=== PATIENT | male | born 1940 | race Caucasian/White ===

== ENCOUNTER 2019-12-07 05:37 | Inpatient (IN) ==
[2019-12-07] MEDS ORDERED: Naloxone 0.4 MG/ML INJ IVP PRN (08:00)
[2019-12-07] MEDS ORDERED: *HR* Dextrose 50 % in Water (Vial) 50 ML VIAL IVP PRN (08:41)
[2019-12-07] MEDS ORDERED: Dextrose Gel 15 GM/37.5 ML TUBE PO PRN ×2 (08:41)
[2019-12-07] MEDS ORDERED: D5% in Water 1,000 ML IVC PRN (08:41)
[2019-12-07 08:49] LABS: Basophils % 0.2 %; Eosinophils # 0.1 K/mcL (0.0-0.6); Eosinophils % 1.9 %; Hematocrit 34.2 % (37.5-50.1); Hemoglobin 11.3 g/dL (12.9-16.9); Immature Granulocytes % 0.4 % (0-4); Lymphocytes % 21.1 %; Mean Corpuscular Hemoglobin 28.1 pg (28.0-33.3); Mean Corpuscular Volume 85.1 fL (83.0-100.0); Mean Platelet Volume 10.2 fL (9.4-12.4); Monocytes # 0.4 K/mcL (0.0-1.3); Monocytes % 8.6 %; Neutrophils # 3.2 K/mcL (1.6-8.9); Platelet Count 168 K/mcL (140-400); Red Blood Count 4.02 M/mcL (4.19-5.50); Segmented Neutrophils % 67.8 %; White Blood Count 4.7 K/mcL (4.3-11.1)
[2019-12-07 08:58] LABS: Albumin 3.6 g/dL (3.5-5.7); Albumin/Globulin Ratio 1.1 (1.1-2.2); Bilirubin,Total 0.2 mg/dL (0.3-1.0); Globulin 3.2 g/dL (2.4-3.5); Magnesium 1.4 mg/dL (1.6-2.6); Phosphorous 3.9 mg/dL (2.7-4.5); Potassium 5.6 mEq/L (3.5-5.1); Total Protein 6.8 g/dL (6.4-8.9)
[2019-12-07 09:04] LABS: INR 1.2; Prothrombin Time 13.5 Seconds (9.4-12.1)
[2019-12-07] MEDS ORDERED: SODIUM ZIRCONIUM CYCLOSILICATE 5 GM POWD.PACK PO SCH (11:45)
[2019-12-07] MEDS: Insulin LISPRO 300 UNITS/3 ML VIAL SQ SCH ×4 (12:06→21:46)
[2019-12-07 13:19] LABS: Bacteria,Urine Few per hpf (None-Few); Bilirubin,Urine Negative (Negative); Blood,Urine Large (Negative); Clarity,Urine Turbid (Clear); Color,Urine Light-Yellow (Yellow); Glucose,Urine (UA) Normal (Normal); Ketones,Urine Negative (Negative); Leukocyte Esterase,Urine Large (Negative); Nitrite,Urine Negative (Negative); Protein,Urine Trace mg/dL (Neg-Trace); RBC,Urine 30-50 per hpf (0-3); Renal Epithelial Cells,Urine Few per hpf (None-Few); Specific Gravity,Urine 1.009 (1.010-1.025); Urobilinogen,Urine Normal (Normal); WBC,Urine TNTC per hpf (0-3)
[2019-12-07] MEDS: Sodium Bicarbonate 75 MEQ in 0.45 % Sodium Chloride 1,000 ML IVC SCH (14:16)
[2019-12-07] MEDS: SODIUM ZIRCONIUM CYCLOSILICATE 5 GM POWD.PACK PO SCH (15:34)
[2019-12-07 16:31] LABS: Calcium 8.2 mg/dL (8.6-10.3); Potassium 5.7 mEq/L (3.5-5.1)
[2019-12-07] MEDS ORDERED: Calcium Gluconate 1gm/50mL 1 GM/50 ML BAG IVPB ONE (16:37)
[2019-12-07] MEDS: *HR* Rivaroxaban 15 MG TABLET PO SCH (18:26)
[2019-12-07] MEDS: Acetaminophen 325 MG TABLET PO PRN (18:55)
[2019-12-08] MEDS: Sodium Bicarbonate 75 MEQ in 0.45 % Sodium Chloride 1,000 ML IVC SCH ×3 (00:07→16:08)
[2019-12-08 01:24] LABS: Protein/Creatinine Ratio,Urine 1.13 mg/mg (0.00-0.20); Sodium, Urine 74.9 mEq/L
[2019-12-08 07:38] LABS: Basophils % 0.5 %; Eosinophils # 0.1 K/mcL (0.0-0.6); Hematocrit 35.4 % (37.5-50.1); Immature Granulocytes % 0.3 % (0-4); Lymphocytes # 1.1 K/mcL (0.6-4.6); Lymphocytes % 18.4 %; Mean Corpuscular HGB Conc 33.9 g/dL (31.6-35.5); Mean Corpuscular Volume 82.5 fL (83.0-100.0); Mean Platelet Volume 10.3 fL (9.4-12.4); Monocytes # 0.5 K/mcL (0.0-1.3); Monocytes % 7.7 %; Neutrophils # 4.2 K/mcL (1.6-8.9); Platelet Count 196 K/mcL (140-400); Red Blood Count 4.29 M/mcL (4.19-5.50); Red Cell Distribution Width 15.9 % (11.5-14.5); Segmented Neutrophils % 71.1 %; White Blood Count 5.9 K/mcL (4.3-11.1)
[2019-12-08 07:49] LABS: BUN/Creatinine Ratio 49 (6-26); Blood Urea Nitrogen 52 mg/dL (8-23); Calcium 9.2 mg/dL (8.6-10.3); Carbon Dioxide 17 mEq/L (23-29); Chloride 114 mEq/L (98-107); Glucose 191 mg/dL (70-105); Magnesium 1.6 mg/dL (1.6-2.6); Osmolality,Calculated 307 (280-300); Phosphorous 1.8 mg/dL (2.7-4.5); Potassium 4.8 mEq/L (3.5-5.1); Sodium 139 mEq/L (136-145); eGFR For African Americans > 60 (> 60); eGFR For Non-African Americans > 60 (> 60)
[2019-12-08] MEDS: Insulin LISPRO 300 UNITS/3 ML VIAL SQ SCH ×4 (09:21→20:45)
[2019-12-08] MEDS ORDERED: CloNIDine Patch 0.1 MG PATCH (WEEKLY) TD SCH (10:00)
[2019-12-08] MEDS: SODIUM ZIRCONIUM CYCLOSILICATE 5 GM POWD.PACK PO SCH (10:31)
[2019-12-08] MEDS: carvediloL 25 MG TABLET PO SCH ×2 (10:32→20:52)
[2019-12-08] MEDS: Finasteride 5 MG TABLET PO SCH (10:32)
[2019-12-08] MEDS: hydrOXYzine pamoate 25 MG CAPSULE PO SCH ×2 (16:08→20:52)
[2019-12-08] MEDS: *HR* Rivaroxaban 15 MG TABLET PO SCH (16:08)
[2019-12-08] MEDS: Insulin DETEMIR 100 UNIT/ML X5UNITS SQ SCH (16:08)
[2019-12-08] MEDS: lisinopriL 20 MG TABLET PO SCH (17:33)
[2019-12-08 23:50] LABS: Protein/Creatinine Ratio,Urine 3.12 mg/mg (0.00-0.20)
[2019-12-08 23:54] LABS: Bacteria,Urine Few per hpf (None-Few); Bilirubin,Urine Negative (Negative); Blood,Urine Moderate (Negative); Clarity,Urine Turbid (Clear); Color,Urine Light-Yellow (Yellow); Glucose,Urine (UA) 500 mg/dL (Normal); Ketones,Urine Negative (Negative); Leukocyte Esterase,Urine Large (Negative); Nitrite,Urine Negative (Negative); Protein,Urine 200 mg/dL (Neg-Trace); RBC,Urine 15-30 per hpf (0-3); Specific Gravity,Urine 1.017 (1.010-1.025); Squamous Epithelial Cell,Urine Few per hpf (None-Few); Urobilinogen,Urine Normal (Normal); WBC,Urine TNTC per hpf (0-3)
[2019-12-09] MEDS: Sodium Bicarbonate 75 MEQ in 0.45 % Sodium Chloride 1,000 ML IVC SCH (03:51)
[2019-12-09 07:51] LABS: BUN/Creatinine Ratio 29 (6-26); Blood Urea Nitrogen 24 mg/dL (8-23); Calcium 8.8 mg/dL (8.6-10.3); Carbon Dioxide 23 mEq/L (23-29); Chloride 106 mEq/L (98-107); Glucose 224 mg/dL (70-105); Magnesium 1.2 mg/dL (1.6-2.6); Osmolality,Calculated 299 (280-300); Phosphorous 1.9 mg/dL (2.7-4.5); Sodium 139 mEq/L (136-145); eGFR For African Americans > 60 (> 60); eGFR For Non-African Americans > 60 (> 60)
[2019-12-09] MEDS: SODIUM ZIRCONIUM CYCLOSILICATE 5 GM POWD.PACK PO SCH (09:31)
[2019-12-09] MEDS: Insulin LISPRO 300 UNITS/3 ML VIAL SQ SCH ×4 (09:35→20:44)
[2019-12-09] MEDS: carvediloL 25 MG TABLET PO SCH ×2 (09:36→20:43)
[2019-12-09] MEDS: hydrOXYzine pamoate 25 MG CAPSULE PO SCH ×3 (09:36→20:43)
[2019-12-09] MEDS: Insulin DETEMIR 100 UNIT/ML X5UNITS SQ SCH ×2 (09:37→20:44)
[2019-12-09] MEDS: Finasteride 5 MG TABLET PO SCH (09:37)
[2019-12-09] MEDS: lisinopriL 20 MG TABLET PO SCH (09:37)
[2019-12-09 11:08] LABS: Bacteria,Urine Few per hpf (None-Few); Bilirubin,Urine Negative (Negative); Blood,Urine Moderate (Negative); Clarity,Urine Turbid (Clear); Color,Urine Yellow (Yellow); Glucose,Urine (UA) >=1000 mg/dL (Normal); Ketones,Urine 20 mg/dL (Negative); Leukocyte Esterase,Urine Large (Negative); Mucus,Urine Few per lpf (None-Few); Nitrite,Urine Negative (Negative); PH,Urine 6.5 pH Units (5.0-8.0); Protein,Urine 200 mg/dL (Neg-Trace); RBC,Urine 50-100 per hpf (0-3); Specific Gravity,Urine 1.017 (1.010-1.025); Squamous Epithelial Cell,Urine Few per hpf (None-Few); Urobilinogen,Urine Normal (Normal); WBC,Urine TNTC per hpf (0-3)
[2019-12-09] MEDS: Ertapenem 1,000 MG in 0.9 % Sodium Chloride Mini Bag 100 ML IVPB SCH (15:43)
[2019-12-09] MEDS: *HR* Rivaroxaban 15 MG TABLET PO SCH (15:43)
[2019-12-10] MEDS: Insulin LISPRO 300 UNITS/3 ML VIAL SQ SCH ×4 (08:04→20:24)
[2019-12-10] MEDS: Finasteride 5 MG TABLET PO SCH (08:05)
[2019-12-10] MEDS: carvediloL 25 MG TABLET PO SCH ×2 (08:05→17:10)
[2019-12-10] MEDS: Ertapenem 1,000 MG in 0.9 % Sodium Chloride Mini Bag 100 ML IVPB SCH (08:06)
[2019-12-10] MEDS: lisinopriL 20 MG TABLET PO SCH (08:06)
[2019-12-10] MEDS: hydrOXYzine pamoate 25 MG CAPSULE PO SCH ×3 (08:06→20:25)
[2019-12-10] MEDS: Insulin DETEMIR 100 UNIT/ML X5UNITS SQ SCH ×2 (08:11→20:24)
[2019-12-10 08:19] LABS: Basophils % 0.3 %; Eosinophils # 0.1 K/mcL (0.0-0.6); Eosinophils % 1.7 %; Hemoglobin 11.6 g/dL (12.9-16.9); Immature Granulocytes % 0.3 % (0-4); Lymphocytes # 1.2 K/mcL (0.6-4.6); Lymphocytes % 17.6 %; Mean Corpuscular HGB Conc 34.1 g/dL (31.6-35.5); Mean Corpuscular Hemoglobin 28.5 pg (28.0-33.3); Mean Corpuscular Volume 83.5 fL (83.0-100.0); Mean Platelet Volume 10.1 fL (9.4-12.4); Monocytes # 0.7 K/mcL (0.0-1.3); Monocytes % 9.2 %; Platelet Count 174 K/mcL (140-400); Red Blood Count 4.07 M/mcL (4.19-5.50); Red Cell Distribution Width 15.2 % (11.5-14.5); Segmented Neutrophils % 70.9 %
[2019-12-10 08:38] LABS: BUN/Creatinine Ratio 24 (6-26); Blood Urea Nitrogen 22 mg/dL (8-23); Calcium 8.6 mg/dL (8.6-10.3); Carbon Dioxide 23 mEq/L (23-29); Chloride 105 mEq/L (98-107); Glucose 215 mg/dL (70-105); Osmolality,Calculated 296 (280-300); Potassium 3.8 mEq/L (3.5-5.1); Sodium 138 mEq/L (136-145); eGFR For African Americans > 60 (> 60); eGFR For Non-African Americans > 60 (> 60)
[2019-12-10] MEDS: *HR* Rivaroxaban 15 MG TABLET PO SCH (17:10)
[2019-12-11] MEDS: lisinopriL 20 MG TABLET PO SCH (07:54)
[2019-12-11] MEDS: Ertapenem 1,000 MG in 0.9 % Sodium Chloride Mini Bag 100 ML IVPB SCH (07:54)
[2019-12-11] MEDS: hydrOXYzine pamoate 25 MG CAPSULE PO SCH ×2 (07:54→14:08)
[2019-12-11] MEDS: Furosemide 20 MG TABLET PO SCH ×2 (07:55→14:08)
[2019-12-11] MEDS: Insulin LISPRO 300 UNITS/3 ML VIAL SQ SCH ×2 (07:55→11:18)
[2019-12-11] MEDS: carvediloL 25 MG TABLET PO SCH (07:55)
[2019-12-11] MEDS: Finasteride 5 MG TABLET PO SCH (07:55)
[2019-12-11] MEDS: Insulin DETEMIR 100 UNIT/ML X5UNITS SQ SCH (08:28)
[2019-12-11] MEDS ORDERED: Fosfomycin Tromethamine 3 GM Packet PO ONE (09:00)
[2019-12-11] MEDS ORDERED: Spironolactone 25 MG TABLET PO SCH (09:00)
[2019-12-11 11:11] VITALS: BP 157/69
[2019-12-11] MEDS: Acetaminophen 325 MG TABLET PO PRN (11:18)
[2019-12-12] MEDS ORDERED: metOLazone 2.5 MG TABLET PO SCH (09:00)
== END 2019-12-11 15:09 | disposition home health service (06) | DRG 683 ==
LOC: 2ANU → SUATTDRO 07:25
PROVIDERS: ADMIT Family Medicine; ATTEND Internal Medicine

== ENCOUNTER 2020-09-26 15:03 | Inpatient (IN) ==
[2020-09-26 16:20] LABS: Basophils % 0.1 %; Eosinophils # 0.1 K/mcL (0.0-0.6); Eosinophils % 0.8 %; Hematocrit 32.6 % (37.5-50.1); Hemoglobin 10.4 g/dL (12.9-16.9); Immature Granulocytes % 0.5 % (0-4); Lymphocytes # 0.5 K/mcL (0.6-4.6); Mean Corpuscular HGB Conc 31.9 g/dL (31.6-35.5); Mean Corpuscular Hemoglobin 28.8 pg (28.0-33.3); Mean Corpuscular Volume 90.3 fL (83.0-100.0); Mean Platelet Volume 10.8 fL (9.4-12.4); Monocytes # 0.2 K/mcL (0.0-1.3); Neutrophils # 6.8 K/mcL (1.6-8.9); Platelet Count 199 K/mcL (140-400); Red Blood Count 3.61 M/mcL (4.19-5.50); Red Cell Distribution Width 16.7 % (11.5-14.5); Segmented Neutrophils % 88.6 %; White Blood Count 7.7 K/mcL (4.3-11.1)
[2020-09-26 16:34] LABS: INR 3.4; Prothrombin Time 37.7 Seconds (9.4-12.1)
[2020-09-26 16:43] LABS: BUN/Creatinine Ratio 57 (6-26); Blood Urea Nitrogen 65 mg/dL (8-23); Carbon Dioxide 33 mEq/L (23-29); Chloride 94 mEq/L (98-107); Glucose 324 mg/dL (70-105); Osmolality,Calculated 311 (280-300); Potassium 4.8 mEq/L (3.5-5.1); Sodium 135 mEq/L (136-145); Troponin I 0.03 ng/mL (< 0.04); eGFR For African Americans > 60 (> 60); eGFR For Non-African Americans > 60 (> 60)
[2020-09-26] MEDS ORDERED: Furosemide 40 MG/4 ML VIAL IVP ONE (16:54)
[2020-09-26] MEDS ORDERED: Ondansetron 4 MG/2 ML VIAL IVP PRN (17:23)
[2020-09-26] MEDS ORDERED: Naloxone 0.4 MG/ML INJ IVP PRN (17:23)
[2020-09-26] MEDS ORDERED: D5% in Water 1,000 ML IVC PRN (17:29)
[2020-09-26] MEDS ORDERED: Dextrose Gel 15 GM/37.5 ML TUBE PO PRN ×2 (17:29)
[2020-09-26] MEDS ORDERED: *HR* Dextrose 50 % in Water (Vial) 50 ML VIAL IVP PRN (17:29)
[2020-09-26] MEDS ORDERED: Insulin DETEMIR 100 UNIT/ML X5UNITS SUBQ SCH (17:30)
[2020-09-26] MEDS ORDERED: traZODone 50 MG TABLET PO PRN (21:05)
[2020-09-26] MEDS ORDERED: CloNIDine Patch 0.1 MG PATCH (WEEKLY) TD SCH (21:15)
[2020-09-26] MEDS: carvediloL 25 MG TABLET PO SCH (22:51)
[2020-09-26] MEDS: Insulin LISPRO 300 UNITS/3 ML VIAL SUBQ SCH ×2 (22:52→23:10)
[2020-09-26] MEDS: Finasteride 5 MG TABLET PO SCH (23:40)
[2020-09-27 02:19] LABS: Hematocrit 29.5 % (37.5-50.1); Mean Corpuscular HGB Conc 30.5 g/dL (31.6-35.5); Mean Corpuscular Hemoglobin 27.6 pg (28.0-33.3); Mean Corpuscular Volume 90.5 fL (83.0-100.0); Mean Platelet Volume 10.7 fL (9.4-12.4); Platelet Count 183 K/mcL (140-400); Red Blood Count 3.26 M/mcL (4.19-5.50); Red Cell Distribution Width 16.6 % (11.5-14.5); White Blood Count 6.1 K/mcL (4.3-11.1)
[2020-09-27 02:26] LABS: Prothrombin Time 23.1 Seconds (9.4-12.1)
[2020-09-27 02:28] LABS: BUN/Creatinine Ratio 55 (6-26); Blood Urea Nitrogen 69 mg/dL (8-23); Calcium 9.1 mg/dL (8.6-10.3); Carbon Dioxide 35 mEq/L (23-29); Chloride 92 mEq/L (98-107); Glucose 421 mg/dL (70-105); Magnesium 1.8 mg/dL (1.6-2.6); Osmolality,Calculated 318 (280-300); Potassium 4.6 mEq/L (3.5-5.1); Sodium 135 mEq/L (136-145); eGFR For African Americans > 60 (> 60); eGFR For Non-African Americans 55 (> 60)
[2020-09-27] MEDS: Furosemide 40 MG/4 ML VIAL IVP SCH ×2 (08:07→20:11)
[2020-09-27] MEDS: carvediloL 25 MG TABLET PO SCH ×2 (08:07→20:10)
[2020-09-27] MEDS: Gabapentin 100 MG CAPSULE PO SCH ×3 (08:07→20:10)
[2020-09-27] MEDS: Insulin DETEMIR 100 UNIT/ML X5UNITS SUBQ SCH ×2 (08:08→20:11)
[2020-09-27] MEDS: Insulin LISPRO 300 UNITS/3 ML VIAL SUBQ SCH ×4 (08:08→20:11)
[2020-09-27 13:11] LABS: Lactate Dehydrogenase 138 Units/L (140-271); Total Protein 6.6 g/dL (6.4-8.9)
[2020-09-27 13:42] LABS: RBC,Pleural Fluid 2000 RBC/mcL
[2020-09-27 13:43] LABS: Appearance of Pleural Fl Hazy (Clear)
[2020-09-27 13:52] LABS: Total Protein,Pleural Fluid 2.8 g/dL
[2020-09-27 14:45] LABS: Basophils,Pleural Fluid 0 %; Eosinophils,Pleural Fluid 0 %
[2020-09-27] MEDS: Finasteride 5 MG TABLET PO SCH (20:10)
[2020-09-27] MEDS ORDERED: Melatonin 3 MG TABLET PO SCH (21:00)
[2020-09-27] MEDS: NIFEdipine XL (24 HR) 30 MG TAB.ER.24 PO SCH (21:48)
[2020-09-28 04:58] LABS: Hemoglobin 9.2 g/dL (12.9-16.9); Mean Corpuscular HGB Conc 31.7 g/dL (31.6-35.5); Mean Corpuscular Hemoglobin 28.7 pg (28.0-33.3); Mean Corpuscular Volume 90.3 fL (83.0-100.0); Mean Platelet Volume 10.5 fL (9.4-12.4); Platelet Count 207 K/mcL (140-400); Red Blood Count 3.21 M/mcL (4.19-5.50); Red Cell Distribution Width 16.9 % (11.5-14.5); White Blood Count 7.4 K/mcL (4.3-11.1)
[2020-09-28 05:10] LABS: BUN/Creatinine Ratio 60 (6-26); Blood Urea Nitrogen 67 mg/dL (8-23); Calcium 9.1 mg/dL (8.6-10.3); Carbon Dioxide 39 mEq/L (23-29); Chloride 96 mEq/L (98-107); Glucose 160 mg/dL (70-105); Osmolality,Calculated 315 (280-300); Sodium 141 mEq/L (136-145); eGFR For African Americans > 60 (> 60); eGFR For Non-African Americans > 60 (> 60)
[2020-09-28 07:07] VITALS: BP 128/67
[2020-09-28] MEDS: Insulin LISPRO 300 UNITS/3 ML VIAL SUBQ SCH ×2 (07:49→10:40)
[2020-09-28] MEDS: NIFEdipine XL (24 HR) 30 MG TAB.ER.24 PO SCH (07:49)
[2020-09-28] MEDS: carvediloL 25 MG TABLET PO SCH (07:49)
[2020-09-28] MEDS: Gabapentin 100 MG CAPSULE PO SCH (07:49)
[2020-09-28] MEDS: Insulin DETEMIR 100 UNIT/ML X5UNITS SUBQ SCH (07:49)
[2020-09-28] MEDS ORDERED: Furosemide 40 MG TABLET PO SCH (08:00)
== END 2020-09-28 12:05 | disposition home health service (06) | DRG 291 ==
LOC: EMEROOARM 15:03 → 2ANU 15:03 → SUATTDRO 17:56 → 2ANU 18:46 → SUATTDRO 09-27 17:04
PROVIDERS: ADMIT Internal Medicine; ATTEND Family Medicine

== ENCOUNTER 2020-10-23 12:38 | Inpatient (IN) ==
[2020-10-23] MEDS ORDERED: Ondansetron 4 MG/2 ML VIAL IVP PRN (14:51)
[2020-10-23] MEDS ORDERED: Naloxone 0.4 MG/ML INJ IVP PRN (14:51)
[2020-10-23] MEDS ORDERED: Furosemide 40 MG/4 ML VIAL IVP ONE (16:34)
[2020-10-23] MEDS: Iron Sucrose Complex 250 MG in 0.9 % Sodium Chloride 250 ML IVPB SCH (17:17)
[2020-10-23] MEDS: Pantoprazole 40 MG VIAL IVP SCH (17:18)
[2020-10-23] MEDS: Acetaminophen 325 MG TABLET PO PRN (17:20)
[2020-10-23] MEDS ORDERED: traZODone 50 MG TABLET PO PRN (17:24)
[2020-10-23] MEDS ORDERED: *HR* Dextrose 50 % in Water (Vial) 50 ML VIAL IVP PRN (17:45)
[2020-10-23] MEDS ORDERED: D5% in Water 1,000 ML IVC PRN (17:45)
[2020-10-23] MEDS ORDERED: Dextrose Gel 15 GM/37.5 ML TUBE PO PRN ×2 (17:45)
[2020-10-23 18:33] LABS: Hematocrit 23.2 % (37.5-50.1); Hemoglobin 6.7 g/dL (12.9-16.9)
[2020-10-23] MEDS ORDERED: 0.9 % Sodium Chloride 250 ML ONE (18:34)
[2020-10-23 18:48] LABS: % Iron Saturation 10 % (20-55); Iron 49 mcg/dL (65-175); Transferrin 344 mg/dL (203-362)
[2020-10-23] MEDS: Insulin LISPRO 300 UNITS/3 ML VIAL SUBQ SCH (18:55)
[2020-10-23] MEDS ORDERED: NON-FORMULARY MEDICATION 1 EACH EACH (Ezetimibe [Zetia] 10 MG Tablet) PO SCH (21:00)
[2020-10-23] MEDS: Melatonin 3 MG TABLET PO SCH (21:49)
[2020-10-23] MEDS: Gabapentin 100 MG CAPSULE PO SCH (21:49)
[2020-10-23] MEDS: Insulin DETEMIR 100 UNIT/ML X5UNITS SUBQ SCH (21:49)
[2020-10-23] MEDS: Finasteride 5 MG TABLET PO SCH (21:50)
[2020-10-23] MEDS: carvediloL 25 MG TABLET PO SCH (21:50)
[2020-10-24 00:46] LABS: Basophils % 0.7 %; Eosinophils # 0.2 K/mcL (0.0-0.6); Eosinophils % 3.8 %; Hematocrit 25.7 % (37.5-50.1); Hemoglobin 7.5 g/dL (12.9-16.9); Immature Granulocytes % 0.5 % (0-4); Lymphocytes % 23.1 %; Mean Corpuscular HGB Conc 29.2 g/dL (31.6-35.5); Mean Corpuscular Hemoglobin 24.7 pg (28.0-33.3); Mean Corpuscular Volume 84.5 fL (83.0-100.0); Monocytes # 0.5 K/mcL (0.0-1.3); Monocytes % 10.6 %; Neutrophils # 2.6 K/mcL (1.6-8.9); Nucleated Red Blood Cells 1.6 /100 WBC (0); Platelet Count 226 K/mcL (140-400); Red Blood Count 3.04 M/mcL (4.19-5.50); Red Cell Distribution Width 16.6 % (11.5-14.5); Segmented Neutrophils % 61.3 %; White Blood Count 4.3 K/mcL (4.3-11.1)
[2020-10-24 00:53] LABS: INR 2.2; Prothrombin Time 24.5 Seconds (9.4-12.1)
[2020-10-24 01:01] LABS: Hematocrit 25.3 % (37.5-50.1); Hemoglobin 7.3 g/dL (12.9-16.9)
[2020-10-24 01:05] LABS: BUN/Creatinine Ratio 31 (6-26); Blood Urea Nitrogen 38 mg/dL (8-23); Carbon Dioxide 26 mEq/L (23-29); Chloride 92 mEq/L (98-107); Glucose 142 mg/dL (70-105); Osmolality,Calculated 275 (280-300); Phosphorous 3.8 mg/dL (2.7-4.5); Potassium 3.5 mEq/L (3.5-5.1); Sodium 127 mEq/L (136-145); eGFR For African Americans > 60 (> 60); eGFR For Non-African Americans 57 (> 60)
[2020-10-24 01:28] LABS: Folate 13.7 ng/mL (3.0-16.0)
[2020-10-24] MEDS: Acetaminophen 325 MG TABLET PO PRN (04:03)
[2020-10-24] MEDS: Pantoprazole 40 MG VIAL IVP SCH (06:03)
[2020-10-24] MEDS: Gabapentin 100 MG CAPSULE PO SCH ×3 (08:01→21:27)
[2020-10-24] MEDS: Cyanocobalamin (B-12) 1,000 MCG TABLET PO SCH (08:02)
[2020-10-24] MEDS: carvediloL 25 MG TABLET PO SCH ×2 (08:03→16:32)
[2020-10-24] MEDS: Iron Sucrose Complex 250 MG in 0.9 % Sodium Chloride 250 ML IVPB SCH (08:04)
[2020-10-24] MEDS: Insulin DETEMIR 100 UNIT/ML X5UNITS SUBQ SCH ×2 (08:05→21:27)
[2020-10-24] MEDS: Insulin LISPRO 300 UNITS/3 ML VIAL SUBQ SCH ×3 (08:05→16:45)
[2020-10-24] MEDS ORDERED: NON-FORMULARY MEDICATION 1 EACH EACH (Mirabegron [Myrbetriq] 50 MG Tab.Er.24h) PO SCH (09:00)
[2020-10-24] MEDS: Pantoprazole 40 MG in 0.9 % Sodium Chloride Mini Bag 100 ML IVC SCH ×3 (09:59→18:45)
[2020-10-24] MEDS ORDERED: 0.9 % Sodium Chloride 250 ML ONE (17:40)
[2020-10-24] MEDS: Melatonin 3 MG TABLET PO SCH (21:27)
[2020-10-24] MEDS: Finasteride 5 MG TABLET PO SCH (21:27)
[2020-10-24 22:43] LABS: Hematocrit 28.3 % (37.5-50.1); Hemoglobin 8.6 g/dL (12.9-16.9)
[2020-10-25] MEDS: Pantoprazole 40 MG VIAL IVP SCH ×2 (05:49→16:52)
[2020-10-25 06:25] LABS: Hematocrit 30.1 % (37.5-50.1); Hemoglobin 8.9 g/dL (12.9-16.9); Mean Corpuscular HGB Conc 29.6 g/dL (31.6-35.5); Mean Corpuscular Hemoglobin 25.2 pg (28.0-33.3); Mean Corpuscular Volume 85.3 fL (83.0-100.0); Mean Platelet Volume 9.9 fL (9.4-12.4); Platelet Count 204 K/mcL (140-400); Red Blood Count 3.53 M/mcL (4.19-5.50); Red Cell Distribution Width 16.4 % (11.5-14.5); White Blood Count 5.2 K/mcL (4.3-11.1)
[2020-10-25 06:26] LABS: Hematocrit 30.3 % (37.5-50.1); Hemoglobin 8.9 g/dL (12.9-16.9)
[2020-10-25 06:43] LABS: BUN/Creatinine Ratio 26 (6-26); Blood Urea Nitrogen 28 mg/dL (8-23); Calcium 8.2 mg/dL (8.6-10.3); Carbon Dioxide 28 mEq/L (23-29); Chloride 92 mEq/L (98-107); Glucose 178 mg/dL (70-105); Osmolality,Calculated 276 (280-300); Potassium 3.9 mEq/L (3.5-5.1); Sodium 128 mEq/L (136-145); eGFR For African Americans > 60 (> 60); eGFR For Non-African Americans > 60 (> 60)
[2020-10-25] MEDS: Cyanocobalamin (B-12) 1,000 MCG TABLET PO SCH (09:20)
[2020-10-25] MEDS: Insulin LISPRO 300 UNITS/3 ML VIAL SUBQ SCH ×3 (09:20→16:51)
[2020-10-25] MEDS: Gabapentin 100 MG CAPSULE PO SCH ×3 (09:21→21:36)
[2020-10-25] MEDS: carvediloL 25 MG TABLET PO SCH ×2 (09:21→16:52)
[2020-10-25] MEDS: Insulin DETEMIR 100 UNIT/ML X5UNITS SUBQ SCH ×2 (09:25→21:37)
[2020-10-25] MEDS: Nitrofurantoin (BID) 100 MG CAPSULE PO SCH ×2 (11:46→16:52)
[2020-10-25] MEDS: Furosemide 40 MG TABLET PO SCH (16:53)
[2020-10-25] MEDS: Melatonin 3 MG TABLET PO SCH (21:36)
[2020-10-25] MEDS: Finasteride 5 MG TABLET PO SCH (21:36)
[2020-10-25] MEDS: Magnesium Oxide 400 MG TABLET PO SCH (21:36)
[2020-10-26 02:35] LABS: Basophils % 0.3 %; Eosinophils # 0.1 K/mcL (0.0-0.6); Eosinophils % 2.1 %; Hematocrit 29.4 % (37.5-50.1); Immature Granulocytes % 0.6 % (0-4); Lymphocytes % 15.7 %; Mean Corpuscular HGB Conc 30.6 g/dL (31.6-35.5); Mean Corpuscular Hemoglobin 25.7 pg (28.0-33.3); Mean Platelet Volume 9.7 fL (9.4-12.4); Monocytes # 0.6 K/mcL (0.0-1.3); Monocytes % 9.2 %; Neutrophils # 4.6 K/mcL (1.6-8.9); Nucleated Red Blood Cells 0.5 /100 WBC (0); Platelet Count 205 K/mcL (140-400); Red Cell Distribution Width 16.9 % (11.5-14.5); Segmented Neutrophils % 72.1 %; White Blood Count 6.3 K/mcL (4.3-11.1)
[2020-10-26 02:53] LABS: BUN/Creatinine Ratio 24 (6-26); Blood Urea Nitrogen 28 mg/dL (8-23); Calcium 8.2 mg/dL (8.6-10.3); Carbon Dioxide 28 mEq/L (23-29); Chloride 92 mEq/L (98-107); Glucose 180 mg/dL (70-105); Osmolality,Calculated 274 (280-300); Sodium 127 mEq/L (136-145); eGFR For African Americans > 60 (> 60); eGFR For Non-African Americans > 60 (> 60)
[2020-10-26] MEDS: Pantoprazole 40 MG VIAL IVP SCH ×2 (05:29→17:30)
[2020-10-26] MEDS: Insulin LISPRO 300 UNITS/3 ML VIAL SUBQ SCH ×3 (08:22→16:50)
[2020-10-26] MEDS: Nitrofurantoin (BID) 100 MG CAPSULE PO SCH ×2 (08:32→17:31)
[2020-10-26] MEDS: Insulin DETEMIR 100 UNIT/ML X5UNITS SUBQ SCH ×2 (08:32→21:39)
[2020-10-26] MEDS: Furosemide 40 MG TABLET PO SCH ×2 (08:32→17:31)
[2020-10-26] MEDS: Cyanocobalamin (B-12) 1,000 MCG TABLET PO SCH (08:32)
[2020-10-26] MEDS: Gabapentin 100 MG CAPSULE PO SCH ×3 (08:32→21:39)
[2020-10-26] MEDS: carvediloL 25 MG TABLET PO SCH ×2 (08:33→17:30)
[2020-10-26] MEDS: Magnesium Oxide 400 MG TABLET PO SCH ×2 (08:33→21:40)
[2020-10-26] MEDS: Finasteride 5 MG TABLET PO SCH (21:39)
[2020-10-26] MEDS: Melatonin 3 MG TABLET PO SCH (21:39)
[2020-10-27 01:35] LABS: Basophils % 0.5 %; Eosinophils # 0.1 K/mcL (0.0-0.6); Eosinophils % 2.3 %; Hemoglobin 8.5 g/dL (12.9-16.9); Immature Granulocytes % 0.4 % (0-4); Lymphocytes # 0.9 K/mcL (0.6-4.6); Lymphocytes % 16.3 %; Mean Corpuscular HGB Conc 30.4 g/dL (31.6-35.5); Mean Corpuscular Hemoglobin 25.8 pg (28.0-33.3); Mean Corpuscular Volume 85.1 fL (83.0-100.0); Mean Platelet Volume 9.3 fL (9.4-12.4); Monocytes # 0.6 K/mcL (0.0-1.3); Nucleated Red Blood Cells 0.4 /100 WBC (0); Platelet Count 177 K/mcL (140-400); Red Blood Count 3.29 M/mcL (4.19-5.50); Red Cell Distribution Width 17.6 % (11.5-14.5); Segmented Neutrophils % 70.5 %; White Blood Count 5.7 K/mcL (4.3-11.1)
[2020-10-27 01:47] LABS: BUN/Creatinine Ratio 23 (6-26); Blood Urea Nitrogen 25 mg/dL (8-23); Calcium 8.2 mg/dL (8.6-10.3); Carbon Dioxide 31 mEq/L (23-29); Chloride 92 mEq/L (98-107); Glucose 148 mg/dL (70-105); Osmolality,Calculated 275 (280-300); Potassium 3.7 mEq/L (3.5-5.1); Sodium 129 mEq/L (136-145); eGFR For African Americans > 60 (> 60); eGFR For Non-African Americans > 60 (> 60)
[2020-10-27] MEDS: Pantoprazole 40 MG VIAL IVP SCH (06:06)
[2020-10-27] MEDS: Insulin LISPRO 300 UNITS/3 ML VIAL SUBQ SCH ×2 (08:24→11:56)
[2020-10-27] MEDS: carvediloL 25 MG TABLET PO SCH (08:35)
[2020-10-27] MEDS: Gabapentin 100 MG CAPSULE PO SCH ×2 (08:35→15:06)
[2020-10-27] MEDS: Nitrofurantoin (BID) 100 MG CAPSULE PO SCH (08:36)
[2020-10-27] MEDS: Furosemide 40 MG TABLET PO SCH (08:36)
[2020-10-27] MEDS: Magnesium Oxide 400 MG TABLET PO SCH (08:37)
[2020-10-27] MEDS ORDERED: Lidocaine -MPF 2% 5 ML VIAL ONE (09:29)
[2020-10-27] MEDS ORDERED: *HR* Etomidate 40 MG/20 ML VIAL IVP ONE (09:35)
[2020-10-27] MEDS ORDERED: EPHEDrine 50 MG/ML VIAL ONE (09:39)
[2020-10-27] MEDS ORDERED: *HR* Vasopressin 20 UNIT/ML VIAL ONE (10:31)
[2020-10-27 10:52] VITALS: BP 150/80
[2020-10-27] MEDS: Insulin DETEMIR 100 UNIT/ML X5UNITS SUBQ SCH (11:44)
[2020-10-27] MEDS: Cyanocobalamin (B-12) 1,000 MCG TABLET PO SCH (12:51)
[2020-10-31] MEDS ORDERED: CloNIDine Patch 0.1 MG PATCH (WEEKLY) TD SCH (14:47)
== END 2020-10-27 16:25 | disposition home or self-care (01) | DRG 812 ==
LOC: 3ANU → SUATTDRO 10-24 18:40
PROVIDERS: ADMIT Pharmacist; ATTEND Internal Medicine